=== PATIENT | male | born 1945 | race Caucasian/White ===

== ENCOUNTER → 2017-03-18 | Outpatient (CLI) | payer MEDICARE, BC ==
[~2017-03-18] MED LIST: ASPIRIN EC81 MG PO; ATROVENT HFA12.9 G1 INH; DELTASONE10 MG PO; DELTASONE5 MG PO; GLUCOSAMINE CH1 EAC6 PO; GLUCOSAMINE HC500 MG PO; LEVAQUIN500 MG PO; OXYCODONE HCL5 MG PO; PRILOSEC40 MG PO; SINGULAIR10 MG PO; TESSALON PERLE100 MG PO; TYLENOL EXTRA500 MG PO; TYLENOL325 MG PO; VITAMIN D1000 UNIT; ZOFRAN4 MG PO; ZOFRAN8 MG PO
== END | disposition disaster alternative care site (69) ==
LOC: GRAD 01-30 14:00
DX: C34.31 Malignant neoplasm of lower lobe, right bronchus or lung (principal); C79.51 Secondary malignant neoplasm of bone

== ENCOUNTER → 2017-06-19 | Outpatient (CLI) | payer MEDICARE, BC | END | disposition disaster alternative care site (69) | LOC: GRAD 09:41 | DX: C34.31 Malignant neoplasm of lower lobe, right bronchus or lung (principal); T45.1X5A Adverse effect of antineoplastic and immunosuppressive drugs, initial encounter; B02.23 Postherpetic polyneuropathy; C79.51 Secondary malignant neoplasm of bone; K71.2 Toxic liver disease with acute hepatitis; R91.1 Solitary pulmonary nodule; Q61.02 Congenital multiple renal cysts; M43.8X6 Other specified deforming dorsopathies, lumbar region; M43.8X4 Other specified deforming dorsopathies, thoracic region | CPT/HCPCS: Q9967 ==